=== PATIENT | female | born 1985 | race Caucasian/White ===

== ENCOUNTER 2016-10-03 11:24 | Emergency (ER) | payer OTHER ==
--- NOTE | 2016-10-03 12:08 | DIAGNOSTIC IMAGING REPORT ---
PROCEDURE: XR CHEST 2 VIEW INDICATION: CHEST PAIN TECHNIQUE: PA and lateral views. COMPARISON: None. FINDINGS: Lungs are clear. Heart and mediastinum are normal. Thorax is normal. IMPRESSION: 1. Negative chest.
--- NOTE | 2016-10-03 13:14 | ED CLINICAL REPORT ---
Clinical Report - Physicians/Mid Levels [facility] [address] [place] [address] 10/03/2016 11:24 Patient: PREMA MONTE Time Seen: 11:27 Oct 03 2016. Arrived- By ambulance. Historian- patient and EMS personnel. CPT: ER phys charges level 4 plus (#[id number]). EKG interpretation (#[id number]). HISTORY OF PRESENT ILLNESS Chief Complaint: CHEST PAIN. This started just prior to arrival CHEST PAIN and (Sudden onset of left anterior chest pain (ache) 510. Medics were called, gave NTG SL x1 dose and ASA po, CP decreased to 3/10, SBP dropped to 90's and she was given 25oml NS bolus.). Weight: 63 kg stated. Height/Length: 63 inches Per Patient. BMI: 24.6. and is still present. Onset during moderate exertion. At its maximum, severity described as moderate. When seen in the E.D., severity described as moderate. Modifying factors- worsened by movement. Relieved by rest. It is described as "pain" and it is described as located in the left chest area. No nausea, vomiting, difficulty breathing or diaphoresis. Similar symptoms previously: None. Recent medical care: Not recently seen/assessed. REVIEW OF SYSTEMS No fever, chills, cough, pedal edema or calf pain. No abnormal bleeding, fainting episodes, abdominal pain, difficulty with urination or skin rash. No enlarged lymph nodes, joint pain or bloody stools. All systems otherwise negative, except as recorded above. PAST HISTORY Dysuria. Anemia. Vertigo. Protein and blood in urine since age 7. Overactive bladder. Medications: None. Allergies: No Known Drug Allergy. SOCIAL HISTORY Former smoker. Occasional alcohol use. No drug use. ADDITIONAL NOTES The nursing notes have been reviewed. PHYSICAL EXAM Vital Signs: 10/03/2016 11:21 BP: 97/76. RR: 16. O2 saturation: 98%. Temp: 98.4 F. Pain level now: 3/10. Appearance: Alert. Anxious. Patient in mild distress. Eyes: Pupils equal, round and reactive to light. Eyes normal inspection. ENT: Ears normal. Nose normal. Pharynx normal. Neck: Normal inspection. Neck supple. CVS: Normal heart rate and rhythm. Heart sounds normal. Pulses normal. Respiratory: No respiratory distress. Chest pain reproducible with palpation of the costal cartilage and anterior and lateral chest wall, with movement of the trunk and left arm and with deep breathing. Breath sounds normal. Abdomen: Soft and nontender. Bowel sounds normal. Back: Normal external inspection. Skin: Skin warm. Normal skin color. Extremities: Extremities exhibit normal ROM. No lower extremity edema. Neuro: Oriented X 3. No motor deficit. No sensory deficit. LABS, X-RAYS, AND EKG EKG: Normal sinus rhythm. Normal P waves. Normal RAZIA. Normal QRS complex. Normal axis. Normal ST and T waves. Prior EKG unavailable. The study has been interpreted contemporaneously. The study has been independently viewed by me. The EKG appears to be a good tracing. Chest X-ray: Normal Chest X-Ray. Laboratory Tests: CBC w Diff: (ALRA: 10/03/2016 12:25) ( [facility] 10/03/[facility] 12:35) Final results Test Result Flag Units (Reference) WHITE BLOOD COUNT 5.6 K/uL (4.5-11.5) RED BLOOD COUNT 3.98 L M/uL (4.00-5.20) HEMOGLOBIN 12.2 gm/dL (12.0-16.0) HEMATOCRIT 35.5 L % (36.0-46.0) MEAN CELL VOLUME 89 fL (80-100) MEAN CORPUSCULAR HGB 31 pg (26-34) MEAN CORPUSCULAR HGB CONC 34 g/dL (31-37) RED CELL DISTRIBUTION WIDTH 12.6 % (11.6-14.8) PLATELET COUNT 290 K/uL (150-400) NEUTROPHIL % 62.7 % (50-75) LYMPH % 29.7 % (25-40) MONO % 6.6 % (3-14) EOSINOPHIL % 0.3 % (0-4) BASOPHIL % 0.7 % (0-2) [id number]: (LARA: 10/03/2016 12:25) ( MdgRcvd 10/03/2016 12:44) Final results Test Result Flag Units (Reference) D-DIMER QUANTITATIVE 0.29 ug/mLFEU (0.27-0.52) The primary value of this quantitative assay relates toits negative predictive value (i.e. exclusion) of pulmonaryembolism/deep vein thrombosis/DIC.Elevated levels of d-dimer may also occur with:, age, cancer, inflammation, liver disease,post-op, infection, hematoma, coronary disease, peripheralarteriopathy, bleeding disorders and thrombolytic treatment.Results should be correlated with other clinical andradiological data.Testing Methodology: Latex Immunoassay [id number]: (LARA: 10/03/2016 12:25) ( MsgRcvd 10/03/2016 13:01) Final results Test Result Flag Units (Reference) C-REACTIVE PROTEIN 0.6 mg/dL (0.0-0.9) . PROGRESS AND PROCEDURES Course of Care: Patient indicates that she got nitroglycerin and aspirin in route by the medics. This may have helped the pain some. She indicates a bigger factor and decrease in the pain was just not moving her left arm or her chest. Seems the pain increase every time she takes big breaths moves her left arm or chest. Toradol 30 mg IV Patient is stable. Symptoms better. Patient/family counseled. Disposition: Discharged. Condition: stable. CLINICAL IMPRESSION Chest wall pain .12 lead EKG performed. INSTRUCTIONS Apply moist heat for 15-20 minutes for five days until better. No strenuous activity. Rest. Do not work today, for one day. Warnings: Further evaluation is necessary. GENERAL WARNINGS: Return or contact your physician immediately if your condition worsens or changes unexpectedly, if not improving as expected, or if other problems arise. Prescription Medications: Flexeril 5 mg: take 1 orally every 8 hours as needed for muscle spasm or pain. Dispense fifteen (15). No refills. Substitution is permissible. OTC Medications: Motrin (available over the counter): take according to label instructions. Follow-up: Follow up with your doctor in one week if not better. Understanding of the discharge instructions verbalized by patient and family. Discharge instructions reviewed with and understanding was verbalized by spouse. (Electronically signed by Luis Armando Sanz MD 10/03/2016 15:53)
--- NOTE | 2016-10-03 13:14 | ED ORDER SUMMARY ---
..... Patient: PREMA MONTE OrderSheet [facility] VisitID: [id number] [address] [place] [address] 31y, F Registration Date/Time: 10/03/2016 ORDER SHEET Weight: 63.0 kg (stated) Allergies: No Known Drug Allergy GENERAL ORDERS: EKG - ER Stat (11:44 10/03/2016 Héctor R.N. per protocol) (11:44 Roderickeck R.N.) Chest 2V Urgent (11:52 10/03/2016 Nando SAMUEL) (Ack 11:55 Saul) (12:43 Binh R.N.) CBC w Diff Urgent (11:53 10/03/2016 Nando SAMUEL) (Ack 11:55 Saul) (13:44 Devang R.N.) D-Dimer Urgent (11:53 10/03/2016 Nando SAMUEL) (Ack 11:55 Saul) (13:44 Devang R.N.) CRP Urgent (11:53 10/03/2016 Nando SAMUEL) (Ack 11:55 Saul) (13:44 Devang R.N.) MEDICATION ORDERS: IV FLUIDS: Toradol IV 30 mg (NOW) (11:54 10/03/2016 Nando SAMUEL) (Ack 12:01 Roderickeck R.N.) (12:07 Roderickeck R.N.) ORDER SHEET NOTES: [Electronically signed by Kristy Montague R.N. (13:59 10/03/2016)] [Electronically signed by Luis Armando Sanz MD (15:53 10/03/2016)] [Electronically locked/signed by Kristy Montague R.N. (13:59 10/03/2016)]
--- NOTE | 2016-10-03 13:14 | ED NURSING NOTES ---
Clinical Report - Nurses [facility] [address] [place] [address] 10/03/2016 11:24 Patient: PREMA MONTE TRIAGE Triage time 11:20. Acuity: LEVEL 3. Chief Complaint: CHEST PAIN and (Sudden onset while exercising (approx 10 minutes) of left anterior chest pain (ache) 10. Medics were called, gave NTG SL x1 dose and ASA po, CP decreased to 3/10, SBP dropped to 90's and she was given 25oml NS bolus.). 11:34 10/03/16. MASOOD COMA SCORE: Masood Coma Scale: 15- eyes open spontaneously (4); best verbal response- oriented x 4 (5); best motor response- obeys commands (6). --11:35 Jose Granados R.N. 11:21 10/03/16. BP: 97/76. RR: 16. O2 saturation: 98% on room air. Temp: 98.4 F (oral). Pain level now: 11/07. --11:35 Jose Granados R.N. 11:36 10/03/16. --11:36 Jose Granados R.N. 11:21 10/03/16. HR: 62 (regular). --11:36 Jose Granados R.N. Weight: 63 kg stated. Height/Length: 63 inches Per Patient. BMI: 24.6. --11:32 Jose Granados R.N. Medications None. --11:30 Jose Granados R.N. Medication/allergy information source: the patient. --11:35 Jose Granados R.N. Allergies No Known Drug Allergy. --11:30 Jose Granados R.N. History Arrived by EMS. Historian: patient. This started just prior to arrival. ( No change in the CP with activity, palpation, or deep breathing.). No difficulty breathing, sweating episodes or nausea. Treatment APPRAISER TIMBER: (NTG SL x1 dose and ASA po). PAST MEDICAL HX: Last normal menstrual period was 3 weeks ago- weeks ago. SOCIAL HX: Former smoker, end date 2006. Occasional alcohol use. No drug use. ABUSE ASSESSMENT: No report of abuse. --11:35 Jose Granados R.N. PROBLEMS: Dysuria. Anemia. Vertigo. Protein and blood in urine since age 7. Overactive bladder. --11:30 Jose Granados R.N. Interventions ID band on patient. To treatment room. --11:35 Jose Granados R.N. PHYSICAL ASSESSMENT 11:38 10/03/16. To room via stretcher. GENERAL / NEURO / PSYCH: Alert. Oriented X 4. Appears in no acute distress. Appears anxious. HEENT: Mucous membranes are pink. RESPIRATORY: Respirations not labored. Chest nontender. Breath sounds within normal limits. CVS: Normal sinus rhythm noted. Heart sounds within normal limits. Pulses within normal limits. Capillary refill less than 2 seconds. GI / : Abdomen soft and nontender. EXTREMITIES: No lower extremity edema. SKIN: Skin is warm and dry. Normal skin turgor. Skin is non-tender. --11:41 Jose Granados R.N. NURSING PROGRESS NOTES 11:25 10/03/2016 Site #1 started prior to arrival by EMS via IV in the right wrist with an 20g angiocath; one attempt. Saline lock flushed with 10 mL saline. --12:07 Jose Granados R.N. 11:43 10/03/16. Patient gowned. Head of bed elevated. Reassurance given. Two patient identifiers checked. Call light placed in reach. Bed placed in lowest position. Brakes of bed on. Patient ready for evaluation- chart flagged. --11:43 Jose Granados R.N. EKG time: (11:37). EKG was performed by a tech and shown to the ED physician. --11:44 Jacob Veronica 12:01 10/03/16. Patient transported to radiology by stretcher. (1155). --12:02 Jose Granados R.N. 12:02 10/03/16. Patient returned from radiology by stretcher. (1202). --12:02 Jose Granados R.N. 12:05 10/03/2016 Toradol IVP 30 mg given over 1 minute(s) via site #1. Allergies verified and confirmed 5 rights. IV patency established. IV site checked: no pain, redness, or swelling. IV flushed thoroughly pre- and post-medication administration. IVP given by RN. --12:07 Jose Granados R.N. 12:19 10/03/16. Cardiac rhythm: normal sinus rhythm. playground monitor, pulse oximeter and NIBP monitor placed on patient; monitoring manager- Lead II and V5; monitor alarms on. Call light placed in reach. Bed placed in lowest position. Brakes of bed on. ( Pt's at the bedside). --12:20 Jose Granados R.N. 12:16 10/03/16. BP: 102/53. HR: 73. RR: 16. O2 saturation: 98% on room air. Pain level now: 11/07. --12:20 Jose Granados R.N. Checked patient name and birthdate: patient confirmed. Blood samples drawn from the left antecubital space with syringe and 22g butterfly by tech per protocol ; labeled in presence of the patient and sent to lab: rainbow set: cardiac enzymes (1st set). --12:30 Jacob Veronica 12:45 10/03/16. BP: 110/57. HR: 73. RR: 18. O2 saturation: 99% on room air. --13:31 Betty Garcia R.N. 13:15 10/03/16. BP: 101/55. HR: 70. RR: 18. O2 saturation: 99% on room air. --13:32 Betty Garcia R.N. 13:45. Reassessment after fluids administered and medication administered. She is calm and resting quietly. Overall patient status is improved- she states feels better. RESPIRATORY: No respiratory distress. SKIN: Skin is warm and dry. --13:58 Kristy Montague R.N. DISPOSITION / DISCHARGE Departure time: 1345. Condition at departure: stable. No learning barriers present. Discharge instructions provided and reviewed with the patient. Reviewed medication(s). Prescription(s) given to the patient. Work note given. Patient verbalized understanding. Written instructions provided in Korean. The patient was discharged home and accompanied by spouse. She left the Emergency Department ambulatory and via private vehicle. FALL RISK ASSESSMENT: Fall risk assessment completed. No fall risk identified. --13:47 Kristy Montague R.N. 13:44 10/03/16. BP: 101/78. HR: 78. RR: 19. O2 saturation: 100% on room air. Pain level now: 12/08. --13:47 Kristy Montague R.N. Locked/Released at 10/03/2016 13:59 by Kristy Montague R.N.
--- NOTE | 2016-10-03 13:14 | ED ORDER SUMMARY ---
..... Patient: PREMA MONTE OrderSheet [facility] VisitID: [id number] [address] [place] [address] 31y, F Registration Date/Time: 10/03/2016 ORDER SHEET Weight: 63.0 kg (stated) Allergies: No Known Drug Allergy GENERAL ORDERS: EKG - ER Stat (11:44 10/03/2016 Héctor R.N. per protocol) (11:44 Roderickeck R.N.) Chest 2V Urgent (11:52 10/03/2016 Nando SAMUEL) (Ack 11:55 Saul) (12:43 Binh R.N.) CBC w Diff Urgent (11:53 10/03/2016 Nando SAMUEL) (Ack 11:55 Saul) (13:44 Devang R.N.) D-Dimer Urgent (11:53 10/03/2016 Nando SAMUEL) (Ack 11:55 Saul) (13:44 Devang R.N.) CRP Urgent (11:53 10/03/2016 Nando SAMUEL) (Ack 11:55 Saul) (13:44 Devang R.N.) MEDICATION ORDERS: IV FLUIDS: Toradol IV 30 mg (NOW) (11:54 10/03/2016 Nando SAMUEL) (Ack 12:01 Roderickeck R.N.) (12:07 Roderickeck R.N.) ORDER SHEET NOTES: [Electronically signed by Kristy Montague R.N. (13:59 10/03/2016)] [Electronically signed by Luis Armando Sanz MD (15:53 10/03/2016)] [Electronically locked/signed by Kristy Montague R.N. (13:59 10/03/2016)]
--- NOTE | 2016-10-03 13:14 | ED CLINICAL REPORT ---
Clinical Report - Physicians/Mid Levels [facility] [address] [place] [address] 10/03/2016 11:24 Patient: PREMA MONTE Time Seen: 11:27 Oct 03 2016. Arrived- By ambulance. Historian- patient and EMS personnel. CPT: ER phys charges level 4 plus (#[id number]). EKG interpretation (#[id number]). HISTORY OF PRESENT ILLNESS Chief Complaint: CHEST PAIN. This started just prior to arrival CHEST PAIN and (Sudden onset of left anterior chest pain (ache) 510. Medics were called, gave NTG SL x1 dose and ASA po, CP decreased to 3/10, SBP dropped to 90's and she was given 25oml NS bolus.). Weight: 63 kg stated. Height/Length: 63 inches Per Patient. BMI: 24.6. and is still present. Onset during moderate exertion. At its maximum, severity described as moderate. When seen in the E.D., severity described as moderate. Modifying factors- worsened by movement. Relieved by rest. It is described as "pain" and it is described as located in the left chest area. No nausea, vomiting, difficulty breathing or diaphoresis. Similar symptoms previously: None. Recent medical care: Not recently seen/assessed. REVIEW OF SYSTEMS No fever, chills, cough, pedal edema or calf pain. No abnormal bleeding, fainting episodes, abdominal pain, difficulty with urination or skin rash. No enlarged lymph nodes, joint pain or bloody stools. All systems otherwise negative, except as recorded above. PAST HISTORY Dysuria. Anemia. Vertigo. Protein and blood in urine since age 7. Overactive bladder. Medications: None. Allergies: No Known Drug Allergy. SOCIAL HISTORY Former smoker. Occasional alcohol use. No drug use. ADDITIONAL NOTES The nursing notes have been reviewed. PHYSICAL EXAM Vital Signs: 10/03/2016 11:21 BP: 97/76. RR: 16. O2 saturation: 98%. Temp: 98.4 F. Pain level now: 3/10. Appearance: Alert. Anxious. Patient in mild distress. Eyes: Pupils equal, round and reactive to light. Eyes normal inspection. ENT: Ears normal. Nose normal. Pharynx normal. Neck: Normal inspection. Neck supple. CVS: Normal heart rate and rhythm. Heart sounds normal. Pulses normal. Respiratory: No respiratory distress. Chest pain reproducible with palpation of the costal cartilage and anterior and lateral chest wall, with movement of the trunk and left arm and with deep breathing. Breath sounds normal. Abdomen: Soft and nontender. Bowel sounds normal. Back: Normal external inspection. Skin: Skin warm. Normal skin color. Extremities: Extremities exhibit normal ROM. No lower extremity edema. Neuro: Oriented X 3. No motor deficit. No sensory deficit. LABS, X-RAYS, AND EKG EKG: Normal sinus rhythm. Normal P waves. Normal RAZIA. Normal QRS complex. Normal axis. Normal ST and T waves. Prior EKG unavailable. The study has been interpreted contemporaneously. The study has been independently viewed by me. The EKG appears to be a good tracing. Chest X-ray: Normal Chest X-Ray. Laboratory Tests: CBC w Diff: (LARA: 10/03/2016 12:25) ( [facility] 12[facility]35[facility] Final results Test Result Flag Units (Reference) WHITE BLOOD COUNT 5.6 K/uL (4.5-11.5) RED BLOOD COUNT 3.98 L M/uL (4.00-5.20) HEMOGLOBIN 12.2 gm/dL (12.0-16.0) HEMATOCRIT 35.5 L % (36.0-46.0) MEAN CELL VOLUME 89 fL (80-100) MEAN CORPUSCULAR HGB 31 pg (26-34) MEAN CORPUSCULAR HGB CONC 34 g/dL (31-37) RED CELL DISTRIBUTION WIDTH 12.6 % (11.6-14.8) PLATELET COUNT 290 K/uL (150-400) NEUTROPHIL % 62.7 % (50-75) LYMPH % 29.7 % (25-40) MONO % 6.6 % (3-14) EOSINOPHIL % 0.3 % (0-4) BASOPHIL % 0.7 % (0-2) [id number]: (LARA: 10/03/2016 12:25) ( HigRcvd 10/03/2016 12:44) Final results Test Result Flag Units (Reference) D-DIMER QUANTITATIVE 0.29 ug/mLFEU (0.27-0.52) The primary value of this quantitative assay relates toits negative predictive value (i.e. exclusion) of pulmonaryembolism/deep vein thrombosis/DIC.Elevated levels of d-dimer may also occur with:, age, cancer, inflammation, liver disease,post-op, infection, hematoma, coronary disease, peripheralarteriopathy, bleeding disorders and thrombolytic treatment.Results should be correlated with other clinical andradiological data.Testing Methodology: Latex Immunoassay [id number]: (LARA: 10/03/2016 12:25) ( MsgRcvd 10/03/2016 13:01) Final results Test Result Flag Units (Reference) C-REACTIVE PROTEIN 0.6 mg/dL (0.0-0.9) . PROGRESS AND PROCEDURES Course of Care: Patient indicates that she got nitroglycerin and aspirin in route by the medics. This may have helped the pain some. She indicates a bigger factor and decrease in the pain was just not moving her left arm or her chest. Seems the pain increase every time she takes big breaths moves her left arm or chest. Toradol 30 mg IV Patient is stable. Symptoms better. Patient/family counseled. Disposition: Discharged. Condition: stable. CLINICAL IMPRESSION Chest wall pain .12 lead EKG performed. INSTRUCTIONS Apply moist heat for 15-20 minutes for five days until better. No strenuous activity. Rest. Do not work today, for one day. Warnings: Further evaluation is necessary. GENERAL WARNINGS: Return or contact your physician immediately if your condition worsens or changes unexpectedly, if not improving as expected, or if other problems arise. Prescription Medications: Flexeril 5 mg: take 1 orally every 8 hours as needed for muscle spasm or pain. Dispense fifteen (15). No refills. Substitution is permissible. OTC Medications: Motrin (available over the counter): take according to label instructions. Follow-up: Follow up with your doctor in one week if not better. Understanding of the discharge instructions verbalized by patient and family. Discharge instructions reviewed with and understanding was verbalized by spouse. (Electronically signed by Luis Armando Sanz MD 10/03/2016 15:53)
--- NOTE | 2016-10-03 13:14 | ED NURSING NOTES ---
Clinical Report - Nurses [facility] [address] [place] [address] 10/03/2016 11:24 Patient: PREMA MONTE TRIAGE Triage time 11:20. Acuity: LEVEL 3. Chief Complaint: CHEST PAIN and (Sudden onset while exercising (approx 10 minutes) of left anterior chest pain (ache) 10. Medics were called, gave NTG SL x1 dose and ASA po, CP decreased to 3/10, SBP dropped to 90's and she was given 25oml NS bolus.). 11:34 10/03/16. MASOOD COMA SCORE: Masood Coma Scale: 15- eyes open spontaneously (4); best verbal response- oriented x 4 (5); best motor response- obeys commands (6). --11:35 Jsoe Granados R.N. 11:21 10/03/16. BP: 97/76. RR: 16. O2 saturation: 98% on room air. Temp: 98.4 F (oral). Pain level now: 11/07. --11:35 Jose Granados R.N. 11:36 10/03/16. --11:36 Jose Granados R.N. 11:21 10/03/16. HR: 62 (regular). --11:36 Jose Granados R.N. Weight: 63 kg stated. Height/Length: 63 inches Per Patient. BMI: 24.6. --11:32 Jose Granados R.N. Medications None. --11:30 Jose Granados R.N. Medication/allergy information source: the patient. --11:35 Jose Granados R.N. Allergies No Known Drug Allergy. --11:30 Jose Granados R.N. History Arrived by EMS. Historian: patient. This started just prior to arrival. ( No change in the CP with activity, palpation, or deep breathing.). No difficulty breathing, sweating episodes or nausea. 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 PAST MEDICAL HX: Last normal menstrual period was 3 weeks ago- weeks ago. SOCIAL HX: Former smoker, end date 2006. Occasional alcohol use. No drug use. ABUSE ASSESSMENT: No report of abuse. --11:35 Jose Granados R.N. PROBLEMS: Dysuria. Anemia. Vertigo. Protein and blood in urine since age 7. Overactive bladder. --11:30 Jose Granados R.N. Interventions ID band on patient. To treatment room. --11:35 Jose Granados R.N. PHYSICAL ASSESSMENT 11:38 10/03/16. To room via stretcher. GENERAL / NEURO / PSYCH: Alert. Oriented X 4. Appears in no acute distress. Appears anxious. HEENT: Mucous membranes are pink. RESPIRATORY: Respirations not labored. Chest nontender. Breath sounds within normal limits. CVS: Normal sinus rhythm noted. Heart sounds within normal limits. Pulses within normal limits. Capillary refill less than 2 seconds. GI / : Abdomen soft and nontender. EXTREMITIES: No lower extremity edema. SKIN: Skin is warm and dry. Normal skin turgor. Skin is non-tender. --11:41 Jose Granados R.N. NURSING PROGRESS NOTES 11:25 10/03/2016 Site #1 started prior to arrival by EMS via IV in the right wrist with an 20g angiocath; one attempt. Saline lock flushed with 10 mL saline. --12:07 Jose Granados R.N. 11:43 10/03/16. Patient gowned. Head of bed elevated. Reassurance given. Two patient identifiers checked. Call light placed in reach. Bed placed in lowest position. Brakes of bed on. Patient ready for evaluation- chart flagged. --11:43 Jose Granados R.N. EKG time: (11:37). EKG was performed by a tech and shown to the ED physician. --11:44 Jacob Veronica 12:01 10/03/16. Patient transported to radiology by stretcher. (1155). --12:02 Jose Granados R.N. 12:02 10/03/16. Patient returned from radiology by stretcher. (1202). --12:02 Jose Granados R.N. 12:05 10/03/2016 Toradol IVP 30 mg given over 1 minute(s) via site #1. Allergies verified and confirmed 5 rights. IV patency established. IV site checked: no pain, redness, or swelling. IV flushed thoroughly pre- and post-medication administration. IVP given by RN. --12:07 Jose Granados R.N. 12:19 10/03/16. Cardiac rhythm: normal sinus rhythm. environmental monitoring technician, pulse oximeter and NIBP monitor placed on patient; site monitor- Lead II and V5; monitor alarms on. Call light placed in reach. Bed placed in lowest position. Brakes of bed on. ( Pt's at the bedside). --12:20 Jose Granados R.N. 12:16 10/03/16. BP: 102/53. HR: 73. RR: 16. O2 saturation: 98% on room air. Pain level now: 11/07. --12:20 Jose Granados R.N. Checked patient name and birthdate: patient confirmed. Blood samples drawn from the left antecubital space with syringe and 22g butterfly by tech per protocol ; labeled in presence of the patient and sent to lab: rainbow set: cardiac enzymes (1st set). --12:30 Jacob Veronica 12:45 10/03/16. BP: 110/57. HR: 73. RR: 18. O2 saturation: 99% on room air. --13:31 Betty Garcia R.N. 13:15 10/03/16. BP: 101/55. HR: 70. RR: 18. O2 saturation: 99% on room air. --13:32 Betty Garcia R.N. 13:45. Reassessment after fluids administered and medication administered. She is calm and resting quietly. Overall patient status is improved- she states feels better. RESPIRATORY: No respiratory distress. SKIN: Skin is warm and dry. --13:58 Kristy Montague R.N. DISPOSITION / DISCHARGE Departure time: 1345. Condition at departure: stable. No learning barriers present. Discharge instructions provided and reviewed with the patient. Reviewed medication(s). Prescription(s) given to the patient. Work note given. Patient verbalized understanding. Written instructions provided in Greenlandic. The patient was discharged home and accompanied by spouse. She left the Emergency Department ambulatory and via private vehicle. FALL RISK ASSESSMENT: Fall risk assessment completed. No fall risk identified. --13:47 Kristy Montague R.N. 13:44 10/03/16. BP: 101/78. HR: 78. RR: 19. O2 saturation: 100% on room air. Pain level now: 12/08. --13:47 Kristy Montague R.N. Locked/Released at 10/03/2016 13:59 by Kristy Montague R.N.
--- NOTE | 2016-10-03 15:53 | ED MAR SUMMARY ---
..... Medication Administration Record [facility] [address] [place] [address] Patient: PREMA MONTE Visit ID: [id number] 31y, F Weight: 63.0 kg Height/Length: 63 in BMI: 24.6 ALLERGIES: No Known Drug Allergy Given 12:05 10/03/2016 Jose Granados R.N. Medication Administered: TORADOL [IVP], Dose: 30 mg IVP over 1 minute(s), Site: #1 right wrist. Medication Ordered: Toradol IV 30 mg (NOW).
--- NOTE | 2016-10-03 15:53 | ED MED RECONCILIATION SUMMARY ---
Patient: PREMA MONTE Medication Reconciliation Report [facility] VisitID: [id number] [address] [place] [address] 31y, F Registration Date/Time: 10/03/2016 Weight: 63.0 kg Height/Length: 63 in. BMI: 24.6 ALLERGIES: No Known Drug Allergy The patient's Home Medications are listed below: NONE. The source(s) of the original Home Medication information: patient The following Medications were given to the patient in the Emergency Department: Toradol [IVP] IVP 30 mg, administered: 10/03/2016 12:05:00 PM The following Medications were prescribed to the patient: Motrin (available over the counter): take according to label instructions. -- Luis Armando Sanz MD Flexeril 5 mg: take 1 orally every 8 hours as needed for muscle spasm or pain. Dispense fifteen (15). No refills. Substitution is permissible. -- Luis Armando Sanz MD
--- NOTE | 2016-10-03 15:53 | ED MAR SUMMARY ---
..... Medication Administration Record [facility] [address] [place] [address] Patient: PREMA MONTE Visit ID: [id number] 31y, F Weight: 63.0 kg Height/Length: 63 in BMI: 24.6 ALLERGIES: No Known Drug Allergy Given 12:05 10/03/2016 Jose Granados R.N. Medication Administered: TORADOL [IVP], Dose: 30 mg IVP over 1 minute(s), Site: #1 right wrist. Medication Ordered: Toradol IV 30 mg (NOW).
--- NOTE | 2016-10-03 15:53 | ED DISCHARGE INSTRUCTIONS ---
Patient: PREMA MONTE General Instructions [facility] VisitID: [id number] [address] [place] [address] 31y, F Registration Date/Time: 10/03/2016 Chest wall pain .12 lead EKG performed. INSTRUCTIONS Apply moist heat for 15-20 minutes for five days until better. No strenuous activity. Rest. Do not work today, for one day. Warnings: Further evaluation is necessary. GENERAL WARNINGS: Return or contact your physician immediately if your condition worsens or changes unexpectedly, if not improving as expected, or if other problems arise. Prescription Medications: Flexeril 5 mg: take 1 orally every 8 hours as needed for muscle spasm or pain. Dispense fifteen (15). No refills. Substitution is permissible. OTC Medications: Motrin (available over the counter): take according to label instructions. Follow-up: Follow up with your doctor in one week if not better. Understanding of the discharge instructions verbalized by patient and family. Discharge instructions reviewed with and understanding was verbalized by spouse. ADDITIONAL INFORMATION Chest Strain A strain of the chest is due to stretching and tearing of the muscle fibers between the ribs. This may occur as a result of severe coughing, strenuous lifting or twisting injuries of the upper back. This usually causes increased pain with movement or deep breathing. This may take a few days to a few weeks to heal. Home Care: Rest. Avoid heavy lifting or strenuous exertion. Avoid any activity that causes pain. If you have a severe cough, use a cough syrup such as Robitussin DM (containing dextromethorphan) unless another cough medicine was prescribed. You may use acetaminophen (Tylenol) or ibuprofen (Motrin, Advil) to control pain, unless another medicine was prescribed. [ NOTE: If you have chronic liver or kidney disease or ever had a stomach ulcer or GI bleeding, talk with your doctor before using these medicines.] Follow Up with your doctor as directed. Get Prompt Medical Attention if any of the following occur: A change in the type of pain: if it feels different, becomes more severe, lasts longer, or begins to spread into your shoulder, arm, neck, jaw or back Shortness of breath or increased pain with breathing Cough with dark colored sputum (phlegm) or blood Weakness, dizziness, or fainting Fever of 100.4F (38C) or higher, or as directed by your healthcare provider Cyclobenzaprine Hydrochloride Oral tablet What is this medicine? CYCLOBENZAPRINE (moshe delgado) is a muscle relaxer. It is used to treat muscle pain, spasms, and stiffness. How should I use this medicine? Take this medicine by mouth with a glass of water. Follow the directions on the prescription label. If this medicine upsets your stomach, take it with food or milk. Take your medicine at regular intervals. Do not take it more often than directed. Talk to your certified hyperbaric technologist regarding the use of this medicine in children. Special care may be needed. What side effects may I notice from receiving this medicine? Side effects that you should report to your doctor or health physician primary care sports medicine as soon as possible: allergic reactions like skin rash, itching or hives, swelling of the face, lips, or tongue chest pain fast heartbeat hallucinations seizures vomiting Side effects that usually do not require medical attention (report to your doctor or health physician primary care sports medicine if they continue or are bothersome): headache What may interact with this medicine? Do not take this medicine with any of the following medications: cisapride droperidol flecainide grepafloxacin halofantrine levomethadyl MAOIs like Carbex, Eldepryl, Marplan, Nardil, and Parnate nilotinib pimozide probucol sertindole This medicine may also interact with the following medications: abarelix alcohol contrast dyes dolasetron guanethidine medicines for cancer medicines for depression, anxiety, or psychotic disturbances medicines to treat an irregular heartbeat medicines used for sleep or numbness during surgery or procedure methadone octreotide ondansetron palonosetron phenothiazines like chlorpromazine, mesoridazine, prochlorperazine, thioridazine some medicines for infection like alfuzosin, chloroquine, clarithromycin, levofloxacin, mefloquine, pentamidine, troleandomycin tramadol vardenafil What if I miss a dose? If you miss a dose, take it as soon as you can. If it is almost time for your next dose, take only that dose. Do not take double or extra doses. Where should I keep my medicine? Keep out of the reach of children. Store at room temperature between 15 and 30 degrees C (59 and 86 degrees F). Keep container tightly closed. Throw away any unused medicine after the expiration date. What should I tell my health care provider before I take this medicine? They need to know if you have any of these conditions: heart disease, irregular heartbeat, or previous heart attack liver disease thyroid problem an unusual or allergic reaction to cyclobenzaprine, tricyclic antidepressants, lactose, other medicines, foods, dyes, or preservatives or trying to get breast-feeding What should I watch for while using this medicine? Check with your doctor or health physician primary care sports medicine if your condition does not improve within 1 to 3 weeks. You may get drowsy or dizzy when you first start taking the medicine or change doses. Do not drive, use machinery, or do anything that may be dangerous until you know how the medicine affects you. Stand or sit up slowly. Your mouth may get dry. Drinking water, chewing sugarless gum, or sucking on hard candy may help. You have been given the following additional information: Chest Wall Strain Cyclobenzaprine Hydrochloride Oral tablet No strenuous activity. Rest. Do not work today, for one day. (Electronically signed by Luis Armando Sanz MD 10/03/2016 15:53)
--- NOTE | 2016-10-03 15:53 | ED MED RECONCILIATION SUMMARY ---
Patient: PREMA MONTE Medication Reconciliation Report [facility] VisitID: [id number] [address] [place] [address] 31y, F Registration Date/Time: 10/03/2016 Weight: 63.0 kg Height/Length: 63 in. BMI: 24.6 ALLERGIES: No Known Drug Allergy The patient's Home Medications are listed below: NONE. The source(s) of the original Home Medication information: patient The following Medications were given to the patient in the Emergency Department: Toradol [IVP] IVP 30 mg, administered: 10/03/2016 12:05:00 PM The following Medications were prescribed to the patient: Motrin (available over the counter): take according to label instructions. -- Luis Armando Sanz MD Flexeril 5 mg: take 1 orally every 8 hours as needed for muscle spasm or pain. Dispense fifteen (15). No refills. Substitution is permissible. -- Luis Armando Sanz MD
--- NOTE | 2016-10-03 15:53 | ED DISCHARGE INSTRUCTIONS ---
Patient: PREMA MONTE General Instructions [facility] VisitID: [id number] [address] [place] [address] 31y, F Registration Date/Time: 10/03/2016 Chest wall pain .12 lead EKG performed. INSTRUCTIONS Apply moist heat for 15-20 minutes for five days until better. No strenuous activity. Rest. Do not work today, for one day. Warnings: Further evaluation is necessary. GENERAL WARNINGS: Return or contact your physician immediately if your condition worsens or changes unexpectedly, if not improving as expected, or if other problems arise. Prescription Medications: Flexeril 5 mg: take 1 orally every 8 hours as needed for muscle spasm or pain. Dispense fifteen (15). No refills. Substitution is permissible. OTC Medications: Motrin (available over the counter): take according to label instructions. Follow-up: Follow up with your doctor in one week if not better. Understanding of the discharge instructions verbalized by patient and family. Discharge instructions reviewed with and understanding was verbalized by spouse. ADDITIONAL INFORMATION Chest Strain A strain of the chest is due to stretching and tearing of the muscle fibers between the ribs. This may occur as a result of severe coughing, strenuous lifting or twisting injuries of the upper back. This usually causes increased pain with movement or deep breathing. This may take a few days to a few weeks to heal. Home Care: Rest. Avoid heavy lifting or strenuous exertion. Avoid any activity that causes pain. If you have a severe cough, use a cough syrup such as Robitussin DM (containing dextromethorphan) unless another cough medicine was prescribed. You may use acetaminophen (Tylenol) or ibuprofen (Motrin, Advil) to control pain, unless another medicine was prescribed. [ NOTE: If you have chronic liver or kidney disease or ever had a stomach ulcer or GI bleeding, talk with your doctor before using these medicines.] Follow Up with your doctor as directed. Get Prompt Medical Attention if any of the following occur: A change in the type of pain: if it feels different, becomes more severe, lasts longer, or begins to spread into your shoulder, arm, neck, jaw or back Shortness of breath or increased pain with breathing Cough with dark colored sputum (phlegm) or blood Weakness, dizziness, or fainting Fever of 100.4F (38C) or higher, or as directed by your healthcare provider Cyclobenzaprine Hydrochloride Oral tablet What is this medicine? CYCLOBENZAPRINE (moshe delgado) is a muscle relaxer. It is used to treat muscle pain, spasms, and stiffness. How should I use this medicine? Take this medicine by mouth with a glass of water. Follow the directions on the prescription label. If this medicine upsets your stomach, take it with food or milk. Take your medicine at regular intervals. Do not take it more often than directed. Talk to your director of catering sales regarding the use of this medicine in children. Special care may be needed. What side effects may I notice from receiving this medicine? Side effects that you should report to your doctor or health childcare administrator as soon as possible: allergic reactions like skin rash, itching or hives, swelling of the face, lips, or tongue chest pain fast heartbeat hallucinations seizures vomiting Side effects that usually do not require medical attention (report to your doctor or health childcare administrator if they continue or are bothersome): headache What may interact with this medicine? Do not take this medicine with any of the following medications: cisapride droperidol flecainide grepafloxacin halofantrine levomethadyl MAOIs like Carbex, Eldepryl, Marplan, Nardil, and Parnate nilotinib pimozide probucol sertindole This medicine may also interact with the following medications: abarelix alcohol contrast dyes dolasetron guanethidine medicines for cancer medicines for depression, anxiety, or psychotic disturbances medicines to treat an irregular heartbeat medicines used for sleep or numbness during surgery or procedure methadone octreotide ondansetron palonosetron phenothiazines like chlorpromazine, mesoridazine, prochlorperazine, thioridazine some medicines for infection like alfuzosin, chloroquine, clarithromycin, levofloxacin, mefloquine, pentamidine, troleandomycin tramadol vardenafil What if I miss a dose? If you miss a dose, take it as soon as you can. If it is almost time for your next dose, take only that dose. Do not take double or extra doses. Where should I keep my medicine? Keep out of the reach of children. Store at room temperature between 15 and 30 degrees C (59 and 86 degrees F). Keep container tightly closed. Throw away any unused medicine after the expiration date. What should I tell my health care provider before I take this medicine? They need to know if you have any of these conditions: heart disease, irregular heartbeat, or previous heart attack liver disease thyroid problem an unusual or allergic reaction to cyclobenzaprine, tricyclic antidepressants, lactose, other medicines, foods, dyes, or preservatives or trying to get breast-feeding What should I watch for while using this medicine? Check with your doctor or health childcare administrator if your condition does not improve within 1 to 3 weeks. You may get drowsy or dizzy when you first start taking the medicine or change doses. Do not drive, use machinery, or do anything that may be dangerous until you know how the medicine affects you. Stand or sit up slowly. Your mouth may get dry. Drinking water, chewing sugarless gum, or sucking on hard candy may help. You have been given the following additional information: Chest Wall Strain Cyclobenzaprine Hydrochloride Oral tablet No strenuous activity. Rest. Do not work today, for one day. (Electronically signed by Luis Armando Sanz MD 10/03/2016 15:53)
== END 2016-10-03 13:45 | disposition home or self-care (01) ==
LOC: ED SRH 11:24
DX: R07.89 Other chest pain (principal); Z87.891 Personal history of nicotine dependence
CPT/HCPCS: 91556; 91585; 95059